=== PATIENT | male | born 1940 | race Hispanic/Latino ===

== ENCOUNTER 2020-01-06 09:05 | Outpatient (CLI) | payer MEDICARE, SELFPAY ==
--- NOTE | ~2020-01-06 | MR_ITS ---
EXAMINATION: MR abdomen wo/w con INDICATION: Splenic lesion TECHNIQUE: Coronal SSFSE ARC, WATER:coronal LAVA-FLEX, Coronal 2D FIESTA FatSat, Axial SSFSE BH ARC, Axial 3D DualEcho BH, Axial SSFSE-IR, Axial DWI b=500, Axial 2D FIESTA FatSat, pre and dynamic postco ntrast Axial LAVA ARC, postcontrast Coronal In and Opposed phase LAVA FLEX COMPARISON: 02/27/2016 CONTRAST: Multihance, 12 cc FINDINGS: There is a 1.5 cm slightly T1 hypointense and slightly T2 hyperintense lesion in the lower pole of the spleen which previously measured 12 mm. There is early arterial enhancement of the lesion with persistent enhancement on progressively delayed phases. There is no associated restricted diffu yuniel. A 12 mm cyst is noted in the left hepatic lobe. The liver is otherwise unremarkable. The pancre as, gallbladder, and adrenal glands are normal. Cysts of the kidneys measure up to 11 mm on the left. There are no pathologically enlarged abdominal lymph nodes. No dilated loops of bowel are evident. IMPRESSION: 1. Splenic lesion with minimal change since 2015 comparison, most consistent with a benign finding elkins ch as hemangioma or hamartoma. CT recommended on the ultrasound abdomen limited examination performed today is not necessary. Reviewed, dictated and finalized at location A. IMPRESSION: 1. Splenic lesion with minimal change since 2015 comparison, most consistent wi th a benign finding such as hemangioma or hamartoma. CT recommended on the ultr asound abdomen limited examination performed today is not necessary.
--- NOTE | ~2020-01-06 | US_ITS ---
US abdomen limited DATE: 01/06/2020 09:48 INDICATION: Lesion of spleen TECHNIQUE: Real-time and color flow imaging of the spleen COMPARISON: 02/27/2016 MRI abdomen: 12 mm hyperenhancing splenic mass was noted, thought to be most l ikely a hemangioma or hamartoma 11/16/2015 CT abdomen pelvis: Indeterminate 11 mm enhancing lesion of spleen FINDINGS: Splenic size is within normal limits. No splenic mass lesion is detected sonographically. IMPRESSION: No sonographic abnormality is evident; consider CT abdomen with IV contrast material and comparison to 11/16/2015 CT abdomen examination. Reviewed, dictated and finalized at Location [facility]. Reviewed, dictated and finalized at location A.
[2020-01-06 10:40] LABS: Estimated Glomerular Filt Rate > 60
== END 2020-01-06 09:06 | disposition home or self-care (01) ==
PROVIDERS: PCP Registered Nurse; Visit Provider Registered Nurse
DX: D73.89 Other diseases of spleen (principal)
CPT/HCPCS: 74183; 76705; A9577

== ENCOUNTER 2020-10-23 10:07 | Emergency (ER) | payer MEDICARE, SELFPAY ==
--- NOTE | ~2020-10-23 | CT_ITS ---
EXAMINATION: CT brain wo con DATE: 10/23/2020 11:22 INDICATION: Dizziness TECHNIQUE: Computed tomography (CT) of the head was performed without intravenous contrast. The mA wa s adjusted according to patient size. Iterative reconstruction technique was employed. Exam dose: 60 5.33 mGy-cm total exam DLP. COMPARISON: None FINDINGS: No intracranial mass lesion or hemorrhage or cerebrovascular accident. No midline shift or mass effect effect. No subdural or epidural hematoma. There is bilateral internal carotid artery calcifications. No skull fracture is evident. Included paranasal sinuses and the mastoid air cells are normally devel oped and aerated. IMPRESSION: Cerebral atherosclerosis; no acute intracranial finding Reviewed, dictated and finalized at [facility]. Reviewed, dictated and finalized at location A.
--- NOTE | ~2020-10-23 | XR_ITS ---
XR chest 2V DATE: 10/23/2020 11:29 INDICATION: Dizziness TECHNIQUE: AP and lateral views COMPARISON: 04/02/2019 CT chest 09/09/2017 two-view chest FINDINGS: Normal heart size. No hilar or mediastinal enlargement. No pulmonary infiltrate or consolid ation, pleural effusion or pulmonary vascular congestion or pneumothorax. IMPRESSION: No active cardiopulmonary disease Reviewed, dictated and finalized at location A.
[2020-10-23 10:16] VITALS: BP 112/57; PULSE 79; RESP 20; TEMP 36.3; O2SAT 99
--- NOTE | 2020-10-23 10:16 | ECG_ITS ---
Measurements Intervals [place] Rate: 62 P: 68 MN: 157 QRS: 84 QRSD: 80 T: 64 QT: 373 QTc: 382 Interpretive Statements SINUS RHYTHM BASELINE ARTIFACT- I, II, III, AVR, AVL NORMAL ECG Electronically Signed On 10-23-2020 16:21:27 CDT by Germán Almeida D.O.
[2020-10-23 10:40] VITALS: BP 107/63; PULSE 76
[2020-10-23 10:41] VITALS: BP 109/64; PULSE 78
[2020-10-23 10:43] VITALS: BP 115/64; PULSE 78
[2020-10-23 10:43] LABS: Basophils Percent Auto 0.5 % (0.2-1.2); Eosinophils Absolute Auto 0.2 K/mm3 (0-0.3); Eosinophils Percent Auto 2.1 % (0-4.4); Hematocrit 49.9 % (42.0-52.0); Hemoglobin 16.1 g/dL (14.0-18.0); Immature Granulocyte Absolute 0.02 K/mm3 (0.00-0.031); Immature Granulocyte Percent A 0.2 % (0-0.5); Lymphocytes Absolute Auto 1.74 K/mm3 (0.9-3.2); Lymphocytes Percent Auto 20.6 % (18.3-44.2); Mean Corpuscular HGB Conc 32.3 g/dl (32-36); Mean Corpuscular Hemoglobin 28.6 pg (26-34); Mean Corpuscular Volume 88.8 fl (80-100); Mean Platelet Volume 11.8 fl (7.4-10.4); Monocytes Absolute Auto 0.6 K/mm3 (0.1-0.6); Monocytes Percent Auto 7.5 % (2.6-8.5); Neutrophils Absolute Auto 5.8 K/mm3 (1.3-6.7); Neutrophils Percent Auto 69.1 % (45.5-73.1); Platelet Count Result 145 k/mm3 (150-375); Red Blood Count 5.62 M/mm3 (4.6-6.20); Red Cell Distribution Width 12.4 % (11.5-14.5); White Blood Count 8.4 K/mm3 (4.5-10.0)
--- NOTE | 2020-10-23 11:11 | PC.NURSE ---
damon called lab, jaylon, added on bnp
[2020-10-23 11:15] LABS: Anion Gap 7 mmol/L (8-16); Blood Urea Nitrogen 20 mg/dL (9-20); Carbon Dioxide 24 mmol/L (22-30); Chloride 105 mmol/L (98-107); Estimated CRCL calculation 53 ml/min; Estimated Glomerular Filt Rate > 60; Glucose 105 mg/dL (65-110); Potassium 4.4 mmol/L (3.4-5.0); Sodium 136 mmol/L (137-145)
[2020-10-23] MEDS: ONDANSETRON INJ 4 MG/2 ML VIAL IV PUSH (11:15)
[2020-10-23] MEDS: SODIUM CHLORIDE 0.9% IV 1,000 ML 999 ML IV CONT (11:15)
[2020-10-23 11:39] LABS: NT Pro B Type Natriuretic Pept 85 pg/mL (5-100)
[2020-10-23] MEDS: MECLIZINE HCL 25 MG TABLET PO (11:44)
--- NOTE | 2020-10-23 11:54 | ED.DIZZY ---
HPI - Dizziness General Chief Complaint: Dizziness Stated Complaint: DIZZINESS Time Seen by Provider: 10/23/20 10:39 Source: patient Mode of arrival: ambulatory Limitations: language barrier (Daughter is interpreting) History of Present Illness HPI Narrative: This is a 80-year-old male that presents to the emergency department for dizziness since last night. Reports every time he stands up to walk he gets room spinning dizziness. Associated with generalized weakness. Reports over the last year he feels short of breath every day when he wakes up. He denies any current shortness of breath. Denies fever, nausea, vomiting, chest pain, or lower extremity edema. Related Data Home Medications Medication Instructions Recorded Confirmed dapagliflozin [Farxiga] mg 10/23/20 famotidine 10/23/20 lisinopril 10/23/20 metformin mg 10/23/20 simvastatin mg 10/23/20 Allergies Allergy/AdvReac Type Severity Reaction Status Date / Time No Known Allergies Allergy Mild Verified 10/23/20 10:23 Review of Systems Review of Systems: Narrative: CONSTITUTIONAL: Denies fever EYES: Denies visual changes CARDIOVASCULAR: Denies chest pain, or edema. RESPIRATORY: Denies current dyspnea. GASTROINTESTINAL: Denies vomiting NEUROLOGIC: Denies headache, numbness, or weakness. All systems reviewed & are unremarkable except as noted in HPI and below PMFSH Past Medical History Medical History (Updated 10/23/20 @ 14:31 by Kirsten Newman PA-C) History of diabetes mellitus History of hyperlipidemia History of hypertension Social History Social History Gender identity (if verbalized by the patient): Male Exam Narrative: Exam Narrative: GENERAL: Elderly, well-nourished, and in no acute distress. HEAD: Normocephalic, atraumatic. EYES: PERRLA and EOMI. ENT: Nares clear, no rhinorrhea or epistaxis. Mucous membranes moist. Oropharynx without tonsillar hypertrophy exudate or other lesions. Bilateral TMs pearly grullon non-bulging NECK: Supple. No adenopathy or masses. No carotid bruits or JVD CHEST: Clear to auscultation. No respiratory distress. No wheezes rales or rhonchi HEART: Regular rate and rhythm. No murmur heard. Normal peripheral pulses. EXTREMITIES: Normal range of motion. No edema. SKIN: Warm, dry, no rash. NEURO: No focal deficits. Alert and oriented x3. Cranial nerves II through XII grossly intact. Normal [id number] PSYCH: Normal mood and affect Course Consultations Consultation #1: Spoke with Dr. Kuhn about patient and workup who will follow up in clinic Date: 10/23/20 Time: 14:02 Vital Signs Vital signs: Vital Signs Temperature 97.4 F L 10/23/20 10:16 Pulse Rate 79 10/23/20 10:16 Respiratory Rate 20 10/23/20 10:16 Blood Pressure 112/57 L 10/23/20 10:16 Pulse Oximetry 99 10/23/20 10:16 Temperature 97.4 F L 10/23/20 10:16 Pulse Rate 63 10/23/20 13:51 Respiratory Rate 18 10/23/20 13:51 Blood Pressure 108/60 10/23/20 13:51 Pulse Oximetry 100 10/23/20 13:51 MDM - Dizziness MDM Narrative Medical decision making narrative: Patient presents the emergency department for positional dizziness noted since last night. Also noting some shortness of breath in the morning which she says has been ongoing for about a year. Denies any current shortness of breath or chest pain. He is afebrile and nontoxic-appearing. He is neurologically intact. CBC and metabolic panel without concerning findings. UA without evidence of infection. Chest x-ray without acute cardiopulmonary abnormality. CT scan of the brain is without acute findings. EKG without concerning changes. BNP is normal. Patient and family updated on case findings. Spoke with Dr. Kuhn about patient work-up will follow-up in clinic. Patient hydrated and given dose of meclizine and Zofran with relief. Able to ambulate with a stable gait. Also spoke with patient and family about likely needing a new sleep study. It looks like he had
[2020-10-23 12:46] LABS: Add Urine Microscopic? YES; Appearance Urine Clear (Clear); Bilirubin Urine Negative (Negative); Blood Urine Negative (Negative); Color Urine Yellow (Yellow); Glucose Urine UA 3+ mg/dL (Negative); Ketones Urine Negative (Negative); Leukocyte Esterase Ur Negative LEU/UL (Negative); Nitrate Urine Negative (Negative); Protein Urine Negative (Negative); RBC Urine 0-2 /hpf (0-2); Specific Grav Ur 1.015 (1.001-1.035); Squamous Epithelial Cell Urine Rare /hpf (Few); Urobilinogen Urine Negative mg/dL (<2.0); WBC Urine 0-3 /hpf
[2020-10-23 13:51] VITALS: BP 108/60; PULSE 63; RESP 18; O2SAT 100
--- NOTE | 2020-10-23 14:07 | PC.NURSE ---
Ambulated in halls without dizziness. Reports feeling better than on arrival.
[2020-10-23 14:47] VITALS: BP 103/57; PULSE 63; RESP 14; O2SAT 98
== END 2020-10-23 15:01 | disposition home or self-care (01) ==
PROVIDERS: Physician Assistant; Emergency Provider Emergency Medicine; PCP Registered Nurse
DX: R42 Dizziness and giddiness (principal); R06.02 Shortness of breath; E11.9 Type 2 diabetes mellitus without complications; E78.5 Hyperlipidemia, unspecified; I10 Essential (primary) hypertension; Z79.84 Long term (current) use of oral hypoglycemic drugs; I67.2 Cerebral atherosclerosis
CPT/HCPCS: 36415; 70450; 71046; 80048; 81001; 83880; 85025; 93005; 96361; 96374; 99284; A9270; J2405; J7030

== ENCOUNTER 2021-04-02 11:06 | Outpatient (CLI) | payer MEDICARE, SELFPAY ==
--- NOTE | ~2021-04-02 | CT_ITS ---
EXAMINATION:CT diagnostic chest wo con DATE: 04/02/2021 11:42 INDICATION: Solitary pulmonary nodule. TECHNIQUE: Computed tomography (CT) of the chest was performed without intravenous contrast. Automate d exposure control and iterative reconstruction technique were employed. The dose-length product (DLP ) was 173.53 mGy-cm. COMPARISON: Chest CT 04/02/2019, 09/14/2016 FINDINGS: There is mild scarring at the lung apices. Calcified bilateral lung nodules and calcified r ight hilar lymph nodes are consistent with old granulomatous disease. There are chronic reticular opa cities in the lower lobes. No bronchiectasis or honeycombing. There is mild atelectasis in right midd le lobe. There is a chronic 3 mm nodule in right upper lobe. No pleural effusion. The heart size is n ormal. There are coronary artery calcifications. No pericardial effusion. There is a 17 mm cyst in th e liver. There are bridging endplate osteophytes at multiple levels in the spine, consistent with dif fuse idiopathic skeletal hyperostosis (DISH). IMPRESSION: 1. Chronic small lung nodule, consistent with granulomatous disease. 2. Mild chronic interstitial lung disease. Reviewed, dictated and finalized at location A. SCHOOL GUIDANCE COUNSELOR
== END 2021-04-02 11:07 | disposition home or self-care (01) ==
LOC: ANHIMG 11:15
PROVIDERS: PCP Registered Nurse; Visit Provider Nurse Practitioner Gerontology
DX: R91.1 Solitary pulmonary nodule (principal)
CPT/HCPCS: 71250

== ENCOUNTER 2021-05-12 01:07 | Day surgery (SDC) | payer MEDICARE, SELFPAY ==
[2021-05-01 13:50] VITALS: BMI 23.4
[2021-05-12 11:05] VITALS: BP 124/75; PULSE 100; RESP 18; TEMP 36.5; O2SAT 97; BMI 21.4
--- NOTE | 2021-05-12 11:14 | WPDANESEPPF ---
Anes - Initial Pre Proc Eval Procedure: Operation Date: 05/12/21 12:30 Proposed Procedures p Colonoscopy - Baron Sultana MD Date/Time: 05/12/21 11:14 Surgeon: Baron Sultana MD Pre Op Diagnosis: weight loss, diarrhea Patient Data Age: 80 Gender: M Height: 1.6 m Weight: 60 kg Allergies Allergy/AdvReac Type Severity Reaction Status Date / Time No Known Allergies Allergy Mild Verified 05/12/21 11:15 Home Medications Medication Instructions Recorded Confirmed Type dapagliflozin [Farxiga] 5 mg DAILY 10/23/20 05/12/21 History lisinopril 10 mg PO DAILY 10/23/20 05/12/21 History metformin 1,000 mg BID 10/23/20 05/12/21 History simvastatin 20 mg DAILY 10/23/20 05/12/21 History lansoprazole [Prevacid] 15 mg PO DAILY 05/01/21 05/12/21 History loperamide 2 mg PO DAILY 05/01/21 05/12/21 History Patient hx anesthesia problems: none Family hx anesthesia problems: none Results Review: All pre-operative results and documents have been reviewed as part of the pre-operative evaluation. [facility] Past Medical History Medical History (Updated 05/12/21 @ 11:58 by Baron Sultana MD) GERD (gastroesophageal reflux disease) History of diabetes mellitus History of hyperlipidemia History of hypertension Surgical History Surgical History (Updated 05/11/21 @ 10:03 by Joseluis Monterroso DO) History of appendectomy Social History Social History Smoking status: Former smoker Alcohol intake: never Gender identity (if verbalized by the patient): Male Anes - Eval Final PreProcedure Day of Procedure 05/12/21 11:14 Patient weight: normal Heart: regular rate and rhythm Lungs: clear to auscultation and normal air movement Airway: Mallampati scale class II Neurological: alert and oriented Last oral intake: >/= 8 hours ASA classification: II Emergent: no Results Review: All pre-operative results and documents have been reviewed as part of the pre-operative evaluation. Informed Consent: The patient's anesthetic plan and its attendant risks and benefits were discussed with the patient/family/POA. Questions were solicited and answers provided to the satisfaction of the patient/family/POA.
[2021-05-12] MEDS: LACTATED RINGERS 1,000 ML 150 ML IV CONT (11:26)
[2021-05-12 11:28] LABS: Glucose Point of Care 149 mg/dl (65-105)
[2021-05-12 11:55] VITALS: BP 103/64; PULSE 68; RESP 28; O2SAT 94
--- NOTE | 2021-05-12 11:57 | WPDGICN ---
Assessment and Plan Assessment and plan (1) Encounter for screening colonoscopy: Code(s): Z12.11 - Encounter for screening for malignant neoplasm of colon Status: Acute Assessment and Plan: Patient has not had recent colonoscopy. Screening colonoscopy indicated is of age. (2) Change in bowel habit: Code(s): R19.4 - Change in bowel habit Status: Acute Assessment and Plan: Patient has change in bowel habit manifested by intermittent loose stools and urgency. Suspicious for irritable bowel syndrome. Plan is for fiber supplementation such as FiberCon 2 tabs p.o. b.i.d.. Further recommendations may be given after endoscopy. GI Consult Note Consult date/time: 05/12/21 11:57 HPI: Tom Abel is a 80 year old male Presents for colonoscopy. Patient speaks Turkish. His daughter interprets for him. He reports intermittent loose stools off and on. This is reported to be more of an urgent bowel movement. Often loose. He has been prescribed Imodium AD which may help to some degree. He denies any bleeding. He reports perhaps a 5lb weight loss over recent months. He denies any abdominal pain. Family history noncontributory. Patient referred for colonoscopy to exclude organic disease. Review of Systems Review of Systems: All systems reviewed & are unremarkable except as noted in HPI and below PMFSH Past Medical History Medical History (Updated 05/12/21 @ 11:58 by Baron Sultana MD) GERD (gastroesophageal reflux disease) History of diabetes mellitus History of hyperlipidemia History of hypertension Surgical History Surgical History (Updated 05/11/21 @ 10:03 by Joseluis Monterroso DO) History of appendectomy Social History Social History Smoking status: Former smoker Alcohol intake: never Gender identity (if verbalized by the patient): Male Meds Home Medications and Allergies Home Medications Medication Instructions Recorded Confirmed Type dapagliflozin [Farxiga] 5 mg DAILY 10/23/20 05/12/21 History lisinopril 10 mg PO DAILY 10/23/20 05/12/21 History metformin 1,000 mg BID 10/23/20 05/12/21 History simvastatin 20 mg DAILY 10/23/20 05/12/21 History lansoprazole [Prevacid] 15 mg PO DAILY 05/01/21 05/12/21 History loperamide 2 mg PO DAILY 05/01/21 05/12/21 History Allergies Allergy/AdvReac Type Severity Reaction Status Date / Time No Known Allergies Allergy Mild Verified 05/12/21 11:15 Vital Signs Vital Signs - 24 hr 05/12/21 11:05 Temperature 97.7 F Pulse Rate 100 Respiratory Rate 18 Blood Pressure 124/75 Pulse Oximetry 97 Exam Narrative: On physical exam patient is alert. Vital signs stable. HEENT exam reveals no icterus. Lungs are clear to auscultation and percussion. Heart is without murmur or extra sounds. Abdomen bowel sounds present soft nontender with no organomegaly. Digital external rectal exam normal.
[2021-05-12 12:05] VITALS: BP 97/54; PULSE 71; RESP 20; O2SAT 99
[2021-05-12 12:15] VITALS: BP 108/61; PULSE 64; RESP 19; O2SAT 99
== END 2021-05-12 12:30 | disposition home or self-care (01) ==
PROVIDERS: PCP Registered Nurse; Visit Provider Internal Medicine Gastroenterology
PROC: 0DJD8ZZ Inspection of Lower Intestinal Tract, Via Natural or Artificial Opening Endoscopic (ICD-10-PCS; CPT 45378; principal; 2021-05-12 12:30)
DX: Z12.11 Encounter for screening for malignant neoplasm of colon (principal); R19.7 Diarrhea, unspecified; K64.8 Other hemorrhoids; K57.30 Diverticulosis of large intestine without perforation or abscess without bleeding; D12.5 Benign neoplasm of sigmoid colon; K21.9 Gastro-esophageal reflux disease without esophagitis; I10 Essential (primary) hypertension; E11.9 Type 2 diabetes mellitus without complications; E78.5 Hyperlipidemia, unspecified; Z79.84 Long term (current) use of oral hypoglycemic drugs; R63.4 Abnormal weight loss; Z68.21 Body mass index [BMI] 21.0-21.9, adult; Z87.891 Personal history of nicotine dependence
CPT/HCPCS: 45385; 82948; 88305; J2704; J7120

== ENCOUNTER 2022-09-27 08:47 | Outpatient (CLI) | payer MEDICARE, SELFPAY ==
--- NOTE | ~2022-09-27 | US_ITS ---
EXAMINATION: US art doppler w press LE BI DATE: 09/27/2022 11:31 INDICATION: Peripheral vascular disease TECHNIQUE: Segmental pressures and plethysmographic and Doppler waveforms of the brachial and lower e xtremity arteries were obtained. COMPARISON: None. FINDINGS: Right and left brachial artery pressures of 138 mm Hg and 145 mm Hg, respectively, are concordant (no rmal difference <= 30 mmHg). The right and left high-thigh pressure indices are 1.07 and 1.08, respec tively (normal > 1.2). The right ankle-brachial index (MIRELLA) is 1.05 (normal >= 0.9-1). The right great toe-brachial index (T BI) is 0.46 (normal >= 0.6-0.8). The right lower extremity segmental pressure gradients are increased between the right dorsalis pedis artery and the right popliteal artery (normal gradients <= 20-30 mm Hg between adjacent levels on the same leg or the same levels on the two legs). Arterial waveforms ar e biphasic with brisk systolic upstrokes throughout the arteries of the right lower limb. The left MIRELLA is 1.04. The left TBI is 0.75. The left lower extremity segmental pressure gradients are increased between the left dorsalis pedis artery and the left [id number] popliteal artery. Arter ial waveforms are triphasic at the left superficial femoral, popliteal and posterior tibial arteries and biphasic at the left common femoral and dorsalis pedis arteries with brisk systolic upstrokes thr oughout. IMPRESSION: 1. 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 2. Mild arterial occlusive disease to the right lower limb with mildly decreased right TBI but normal left TBI and bilateral ABIs. Reviewed, dictated and finalized at location A. IMPRESSION: 1. 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 2. Mild arterial occlusive disease to the right lower limb with mildly decrease d right TBI but normal left TBI and bilateral ABIs.
== END 2022-09-27 08:48 | disposition home or self-care (01) ==
LOC: ANHIMG 08:51
PROVIDERS: PCP Registered Nurse; Visit Provider Registered Nurse
DX: I73.9 Peripheral vascular disease, unspecified (principal)
CPT/HCPCS: 93923

== ENCOUNTER 2024-03-11 12:10 | Outpatient (CLI) | payer MEDICARE, SELFPAY ==
--- NOTE | ~2024-03-11 | MR_ITS ---
MRI of the brain Clinical History: Mild cognitive impairment Technique: Axial and sagittal T1-weighted images were acquired. These were followed by axial T2-weigh josh, diffusion weighted, gradient, and FLAIR images. Findings: No significant signal abnormality seen in the brain parenchyma. No acute infarct, intracran ial hemorrhage, or mass lesion. Ventricles and subarachnoid spaces are minimally dilated. Orbits are unremarkable. Paranasal sinuses and mastoid air cells are clear. Major intracranial flow voids appear intact. There is marked flattening of the pituitary gland. Sagittal midline structures otherwise are intact. IMPRESSION: No acute abnormality. Possible empty sella syndrome. Mild generalized atrophy. Reviewed, dictated and finalized at location . ER REPAIR AND SALVAGE
== END 2024-03-11 12:11 | disposition home or self-care (01) ==
PROVIDERS: PCP Registered Nurse; Visit Provider Internal Medicine
DX: G31.84 Mild cognitive impairment of uncertain or unknown etiology (principal); R93.0 Abnormal findings on diagnostic imaging of skull and head, not elsewhere classified
CPT/HCPCS: 70551

== ENCOUNTER 2024-03-23 11:09 | Outpatient (CLI) | payer MEDICARE, SELFPAY ==
--- NOTE | 2024-03-23 | ECG_ITS ---
Test Date: 2024-03-23 12:05:37 Measurements Intervals [place] Rate: 84 P: 74 CO: 155 QRS: 72 QRSD: 94 T: 61 QT: 339 QTc: 401 Interpretive Statements SINUS RHYTHM No previous ECG available for comparison Electronically Signed On 03-24-2024 15:21:37 OFFICE MACHINES TEACHER by Олег Fraser M.D.
--- NOTE | ~2024-03-23 | XR_ITS ---
XR chest 2V Ordering provider: Smitha Bliss, BILLING ADJUDICATOR History: 83 years Male with . ACUTE CHEST PAIN, HX OF HBP . Comparison: None. FINDINGS: MEDIASTINUM: The cardiac silhouette is not enlarged. LUNGS: No effusions or pneumothorax. Minimal opacification in the area of the lingula is noted. OTHER: No free air under the diaphragm. Degenerative changes of the spine. IMPRESSION: Highly suggestive left basilar atelectasis versus pneumonia involving the lingula. Follow-up advised. Reviewed, dictated and finalized at location A. RT/EXPORT AGENT IMPRESSION: Highly suggestive left basilar atelectasis versus pneumonia involving the lingu la. Follow-up advised.
== END 2024-03-23 11:10 | disposition home or self-care (01) ==
PROVIDERS: PCP Registered Nurse; Visit Provider Registered Nurse
DX: R07.9 Chest pain, unspecified (principal)
CPT/HCPCS: 71046; 93005

== ENCOUNTER 2024-06-29 07:10 | Outpatient (RCR) | payer MEDICARE, SELFPAY ==
[2024-05-04 08:23] VITALS: BMI 22.0
== END 2024-08-02 23:59 | disposition home or self-care (01) ==
LOC: ANHWOC 07:10
PROVIDERS: PCP Registered Nurse; Visit Provider Registered Nurse
DX: E13.621 Other specified diabetes mellitus with foot ulcer (principal); Z48.00 Encounter for change or removal of nonsurgical wound dressing
CPT/HCPCS: 99212; 99213; G0463

== ENCOUNTER 2024-12-19 17:45 | Emergency (ER) | payer MEDICARE, SELFPAY ==
--- NOTE | ~2024-12-19 | CT_ITS ---
EXAMINATION: CT cervical spine wo con COMPARISON: None HISTORY: fall in shower, b/l neck pain TECHNIQUE: Axial images were obtained through the spine without IV contrast. Coronal, sagittal reconstruction images were obtained from the axial views. CT scan performed using dose optimization techniques including the following automated exposure control; adjustment of mA and/or kV; use of iterative reconstruction technique. Automatic exposure control was used to reduce radiation dose. Permanent radiation dose record is archived to PACS. FINDINGS: Grade 1 retrolisthesis of C3 on C4, grade 1 anterolisthesis C4 on C5 C5 on C6, no fracture is identified. There is severe loss of disc height at C2-3, C3-4 C5-6 and C6-7 with moderate to severe canal and foraminal stenosis, outpatient MRI is recommended Soft tissues unremarkable. Impression: No acute abnormality. Reviewed, dictated and finalized at location A. Impression: No acute abnormality.
--- NOTE | ~2024-12-19 | CT_ITS ---
EXAMINATION: CT brain jumana wolff, 12/19/2024 19:17 CDT HISTORY: fall in shower, struck head COMPARISON: No comparisons available. Technique: Axial images obtained of the brain without contrast. One or more of the following dose reduction techniques were used: automated exposure control, adjustment of the mA and/or kV according to patient size, use of iterative reconstruction technique. Findings: No acute infarct or parenchymal hemorrhage. No abnormal mass or mass effect. No midline shift. No extra-axial fluid collections. No hydrocephalus. Mastoid air cells unremarkable. Sinuses and orbits unremarkable. No acute fracture. No significant facial or scalp soft tissue swelling evident. No radiopaque foreign body is seen. Impression: 1.No acute intracranial abnormality. Reviewed, dictated and finalized at location A. Impression: 1.No acute intracranial abnormality.
[2024-12-19 17:53] VITALS: BP 145/84; PULSE 82; RESP 16; TEMP 36.6; O2SAT 98
--- NOTE | 2024-12-19 19:33 | PC.NURSE ---
Called pharm, stated was working on it.
[2024-12-19] MEDS: HYDROcodone/acetaminophen (*CRX) 5-325 MG TABLET 1 TAB PO (19:50)
--- NOTE | 2024-12-19 20:11 | ED.FALL ---
HPI - Fall General Chief Complaint: Fall Stated Complaint: fall Time Seen by Provider: 12/19/24 18:56 History of Present Illness HPI Narrative: Patient presents here after a fall, he slipped while getting out of the shower, did bump his head, having some soreness to both sides her shoulders. No loss of consciousness, nausea vomiting, no focal numbness or tingling or weakness, able to walk without issues Related Data Home Medications ?Medication ?Instructions ?Recorded ?Confirmed ?Last Taken ?Type dapagliflozin propanediol 5 mg 5 mg PO DAILY 10/23/20 05/04/24 05/04/24 History tablet (Farxiga) metformin 1,000 mg tablet 1,000 mg PO BID 10/23/20 05/04/24 05/04/24 History simvastatin 20 mg tablet 20 mg PO DAILY 10/23/20 05/04/24 Unknown History diclofenac sodium 1 % topical gel 2 g topical QID 05/04/24 05/04/24 Unknown History diphenoxylate-atropine 2.5 1 tablet PO QID PRN diarrhea 05/04/24 05/04/24 Unknown History mg-0.025 mg tablet famotidine 20 mg tablet 20 mg PO BID 05/04/24 05/04/24 Unknown History lisinopril 2.5 mg tablet 2.5 mg PO DAILY 05/04/24 05/04/24 05/04/24 History loratadine 10 mg tablet (Allergy 10 mg PO DAILY 05/04/24 05/04/24 Unknown History Relief (loratadine)) memantine 5 mg tablet (Namenda) 5 mg PO DAILY 05/04/24 05/04/24 Unknown History metformin 500 mg tablet 500 mg PO DAILY 05/04/24 05/04/24 Unknown History Allergies Allergy/AdvReac Type Severity Reaction Status Date / Time No Known Allergies Allergy Mild Verified 12/19/24 17:57 Review of Systems Review of Systems: All systems reviewed & are unremarkable except as noted in HPI and below PMFSH Past Medical History Medical History (Updated 12/19/24 @ 20:00 by Dorie Paige MD) GERD (gastroesophageal reflux disease) History of hyperlipidemia History of hypertension History of diabetes mellitus Surgical History Surgical History (Updated 05/11/21 @ 10:03 by Joseluis Monterroso DO) History of appendectomy Social History Social History Smoking status: Former smoker Alcohol intake: never Gender identity (if verbalized by the patient): Male Exam Narrative: EXAMINATION OF ORGAN SYSTEMS/BODY AREAS: Constitutional: Vital signs per nursing GENERAL:[No acute distress, non-toxic appearing.] HEAD: Head contusion left scalp EYES: EOMI, conjunctiva normal ENT: Hearing grossly intact NECK: No significant midline tenderness LUNGS: Nonlabored breathing. HEART: [Regular rate and rhythm] ABD: [Soft], [nontender to palpation] EXT: Normal range of motion, no tenderness to palpation any extremity SKIN: Contusion scalp NEURO: [Alert and oriented x 3. No gross focal sensory or strength deficits.] PSYCH: Normal affect Course Vital Signs Vital signs: Vital Signs Temperature 97.8 F 12/19/24 17:53 Pulse Rate 82 12/19/24 17:53 Respiratory Rate 16 12/19/24 17:53 Blood Pressure 145/84 H 12/19/24 17:53 Pulse Oximetry 98 12/19/24 17:53 Oxygen Delivery Room Air 12/19/24 17:53 Temperature 97.8 F 12/19/24 17:53 Pulse Rate 82 12/19/24 17:53 Respiratory Rate 16 12/19/24 17:53 Blood Pressure 145/84 H 12/19/24 17:53 Pulse Oximetry 98 12/19/24 17:53 Oxygen Delivery Room Air 12/19/24 17:53 MDM - Fall MDM Narrative Medical decision making narrative: Patient presents here after a fall, he slipped while getting out of the shower, did bump his head, having some soreness to both sides of his shoulders. No loss of consciousness, nausea vomiting, no focal numbness or tingling or weakness, able to walk without issues Very well-appearing here, does have a scalp contusion, no neurologic deficits, walking without issues, CT head and C-spine obtained given his age thankfully no acute abnormality a he does have findings of possible spinal stenosis CT. Has no neurologic deficits or symptoms, I discussed the findings with the patient and family at bedside, worse to follow-up his PCP for possible in his neck in the future. Return precautions discussed. Stable for discharge. Discharge Plan Discharge Clinical Impression: Fall Patient Disposition: Home Condition: Stable Instructions: Head Injury (ED) Additional Instructions: Please use ice the first few days for your injury; you can take tylenol for pain. Please follow up with your doctor; you might need an MRI for further evaluation of your neck. Patient Language: Hebrew Prescriptions: No Action simvastatin 20 mg tablet 20 mg PO DAILY metformin 1,000 mg tablet 1,000 mg PO BID dapagliflozin propanediol [Farxiga] 5 mg tablet 5 mg PO DAILY lisinopril 2.5 mg tablet 2.5 mg PO DAILY diclofenac sodium 1 % gel 2 g TOPICAL QID famotidine 20 mg tablet 20 mg PO BID diphenoxylate-atropine 2.5-0.025 mg tablet 1 tablet PO QID PRN (Reason: diarrhea) metformin 500 mg tablet 500 mg PO DAILY Rx Instructions: take 1 tablet at dinner time loratadine [Allergy Relief (loratadine)] 10 mg tablet 10 mg PO DAILY memantine [Namenda] 5 mg tablet 5 mg PO DAILY Follow-up/Referrals: Ruthy,OLVIN Bone [Primary Care Provider] - 2 Days
== END 2024-12-19 20:21 | disposition home or self-care (01) ==
PROVIDERS: Emergency Provider Emergency Medicine; PCP Registered Nurse
DX: S00.03XA Contusion of scalp, initial encounter (principal); I10 Essential (primary) hypertension; E78.5 Hyperlipidemia, unspecified; E11.9 Type 2 diabetes mellitus without complications; K21.9 Gastro-esophageal reflux disease without esophagitis; Z87.891 Personal history of nicotine dependence; Z79.899 Other long term (current) drug therapy; Z79.84 Long term (current) use of oral hypoglycemic drugs; W18.2XXA Fall in (into) shower or empty bathtub, initial encounter
CPT/HCPCS: 70450; 72125; 99284; A9270